=== PATIENT | female | born 1950 | race Caucasian/White ===

== ENCOUNTER → 2016-08-29 | Outpatient (CLI) | payer OTHER, MEDICARE ==
[2016-08-29 08:29] LABS: ALANINE AMINOTRANSFERASE 44 U/L (9-52); ALBUMIN 4.4 g/dL (3.5-5.0); ALKALINE PHOSPHATASE 57 U/L (38-126); ANION GAP 9 (5-19); ASPARTATE AMINO TRANSFERASE 30 U/L (14-36); BILIRUBIN,DIRECT 0.2 mg/dL (0.0-0.4); BILIRUBIN,TOTAL 0.6 mg/dL (0.2-1.3); BLOOD UREA NITROGEN 15 mg/dL (7-20); CARBON DIOXIDE 29 mmol/L (22-30); CHLORIDE 107 mmol/L (98-107); CHOLESTEROL 192.19 mg/dL (0-200); CREATININE RESULT 0.55 mg/dL (0.52-1.25); Direct HDL 63 mg/dL (>40); GLUCOSE 102 mg/dL (75-110); MAGNESIUM 2.1 mg/dL (1.6-2.3); SODIUM 145.2 mmol/L (137-145); TRIGLYCERIDES 58 mg/dL (<150)
[2016-08-29 08:41] LABS: DIRECT LDL 91 mg/dL (<100)
== END ==
LOC: OD 07:06
PROVIDERS: ATTEND Internal Medicine
DX: I10 Essential (primary) hypertension (principal); E78.5 Hyperlipidemia, unspecified; R00.2 Palpitations; R07.2 Precordial pain; R55 Syncope and collapse; Z79.899 Other long term (current) drug therapy
CPT/HCPCS: 36415; 80053; 80061; 83735

== ENCOUNTER 2019-10-02 14:02 | Observation (INO) | payer MEDICARE, OTHER ==
[2019-10-02 14:39] LABS: ABSOLUTE BASOPHILS # (AUTO) 0.1 10^3/uL (0.0-0.2); ABSOLUTE EOSINOPHILS # (AUTO) 0.1 10^3/uL (0.0-0.6); ABSOLUTE LYMPHOCYTES (AUTO) 2.2 10^3/uL (0.5-4.7); ABSOLUTE MONOCYTES (AUTO) 0.4 10^3/uL (0.1-1.4); ABSOLUTE NEUT (AUTO) 4.6 10^3/uL (1.7-8.2); BASOPHILS % (AUTO) 0.7 % (0-2); EOSINOPHILS % (AUTO) 1.6 % (0-6); HEMATOCRIT 38.3 % (36.0-47.0); HEMOGLOBIN 13.4 g/dL (12.0-15.5); LYMPHOCYTES % (AUTO) 29.6 % (13-45); MEAN CORPUSCULAR HEMOGLOBIN 30.6 pg (27.0-33.4); MEAN CORPUSCULAR HGB CONC 34.9 g/dL (32.0-36.0); MEAN CORPUSCULAR VOLUME 88 fl (80-97); MONOCYTES % (AUTO) 5.1 % (3-13); PLATELET COUNT 193 10^3/uL (150-450); RED BLOOD COUNT 4.37 10^6/uL (3.72-5.28); RED CELL DISTRIBUTION WIDTH 13.5 % (11.5-14.0); TOTAL CELLS COUNTED % (AUTO) 100 %; WHITE BLOOD COUNT 7.3 10^3/uL (4.0-10.5)
--- NOTE | 2019-10-02 15:00 | ER Document Report ---
ED General - General Stated Complaint: SYNCOPE, HEART PALPITATIONS Time Seen by Provider: 10/02/19 14:59 Information source: Patient Notes: Patient is a 69-year-old female presenting to the emergency department chief complaint of palpitations. Patient states that the palpitations and lightheadedness started about 1230 patient had a syncopal episode and once she was alert and oriented again she states that she felt weak at about 1300 patient had palpitations/fluttering sensation to her chest. She states normally it only lasts for a few seconds but this time it did not stop. Patient states she came to the emergency department for evaluation and treatment. Prior to the patient's arrival I was contacted by Dr. Leung the patient's diagnostic medical sonographer called and stated that he wanted the patient evaluated and subsequently admitted under his service. TRAVEL OUTSIDE OF THE [place] IN LAST 30 DAYS: No - HPI Onset: This afternoon Onset/Duration: Sudden Quality of pain: Achy Severity: Mild Pain Level: 1 Associated symptoms: Weakness. denies: Nonproductive cough, Productive cough, Diarrhea, Drooling, Nausea, Vomiting Exacerbated by: Denies Relieved by: Denies Similar symptoms previously: Yes Recently seen / treated by doctor: No - Related Data Allergies/Adverse Reactions: ibandronate sodium [From Boniva] Allergy (Intermediate, Verified 10/02/19 19:17) Fever Past Medical History - General Information source: Patient - Social History Smoking Status: Unknown if Ever Smoked Cigarette use (# per day): No Chew tobacco use (# tins/day): No Smoking Education Provided: No Frequency of alcohol use: None Drug Abuse: None Lives with: Family Family History: Reviewed & Not Pertinent Patient has suicidal ideation: No Patient has homicidal ideation: No - Past Medical History Cardiac Medical History: Reports: Other - SVT Denies: Hx Coronary Artery Disease, Hx Heart Attack, Hx Hypertension Pulmonary Medical History: Denies: Hx Asthma, Hx Bronchitis, Hx COPD, Hx Pneumonia Neurological Medical History: Denies: Hx Cerebrovascular Accident, Hx Seizures Musculoskeletal Medical History: Reports Hx Arthritis - spine per xray Past Surgical History: Denies: Hx Pacemaker - Immunizations Hx Diphtheria, Pertussis, Tetanus Vaccination: No Review of Systems - Review of Systems Notes: REVIEW OF SYSTEMS: CONSTITUTIONAL : Denies fever, chills, or sweats. Denies recent illness. EENT: Denies eye, ear, throat, or mouth pain or symptoms. Denies nasal or sinus congestion. CARDIOVASCULAR: Per HPI RESPIRATORY: Denies cough, cold, or chest congestion. Denies shortness of breath, difficulty breathing, or wheezing. GASTROINTESTINAL: Denies abdominal pain. Denies nausea, vomiting, or diarrhea. Denies constipation. GENITOURINARY: Denies difficulty urinating, painful urination, burning, frequency, or blood in urine. MUSCULOSKELETAL: Denies neck or back pain or joint pain or swelling. SKIN: Denies rash or skin lesions. HEMATOLOGIC : Denies easy bruising or bleeding. NEUROLOGICAL: Per HPI PSYCHIATRIC: Denies suicidal or homicidal ideations 10 Systems are negative unless otherwise specified above Physical Exam - Vital signs Vitals: Temp 97.8 F 10/02/19 14:06 - Notes Notes: PHYSICAL EXAMINATION: GENERAL: Well-appearing, well-nourished and in no acute distress. HEAD: Atraumatic, normocephalic. EYES: Pupils equal round and reactive to light, extraocular movements intact, sclera anicteric, conjunctiva are normal. ENT: nares patent, oropharynx clear without exudates. Moist mucous membranes. NECK: Normal range of motion, supple without lymphadenopathy, no appreciable JVD LUNGS: Lungs clear to auscultation bilaterally and equal. No wheezes rales or rhonchi. HEART: Regular rate and rhythm without murmurs ABDOMEN: Soft, nontender, normal bowel sounds. No guarding, no rebound. No masses appreciated. EXTREMITIES: Active full range of motion, no pitting or edema. No cyanosis. 2+ pulses x4 NEUROLOGICAL: At time of evaluation the patient is alert and oriented x3, Glascow coma scale of 15, cranial nerves II through XII are grossly intact, sensations intact, motor is intact, there are no signs of nystagmus, there is no pronator drift, there is no facial asymmetry, tongue protrusion is midline, reflexes are equal and bilateral, patient ambulates without ataxia, patient answers all questions appropriately follows commands appropriately. SKIN: Warm, Dry, and intact. Normal turgor, no rashes or lesions noted. Course - Re-evaluation Re-evalutation: 10/02/19 19:33 Patient has been reevaluated several times while in the emergency department the patient is remained stable without decompensation. I did discuss the negative EKG radiologic and laboratory results with the patient. Her diagnostic medical sonographer does want her admitted and she is agreeable with care plan. There is no signs of pneumonia pneumothorax congestive heart failure no signs laboratory [place] of electrolyte abnormalities. - Vital Signs Vital signs: Temp Pulse Resp BP Pulse Ox 97.8 F 71 16 174/88 H 88 L 10/02/19 14:06 10/02/19 15:19 10/02/19 19:01 10/02/19 19:01 10/02/19 19:00 - Laboratory Result Diagrams: 10/02/19 14:13 10/02/19 14:13 Laboratory results interpreted by me: 10/02/19 10/02/19 14:13 14:35 Creatinine 0.51 L Ur Leukocyte Esterase LARGE H - Diagnostic Test Radiology reviewed: Reports reviewed - EKG Interpretation by Me EKG shows normal: Sinus rhythm Rate: Normal Rhythm: NSR When compared to previous EKG there are: Previous EKG unavailable - EKG demonstrates sinus rhythm rate of 64 bpm with occasional PACs Discharge - Discharge Clinical Impression: SVT (supraventricular tachycardia) Condition: Stable Disposition: ADMITTED OBSERVATION Admitting Provider: [facility] Admitted: [facility]
[2019-10-02 15:14] LABS: ALBUMIN 4.5 g/dL (3.5-5.0); ALKALINE PHOSPHATASE 50 U/L (38-126); ANION GAP 8 (5-19); ASPARTATE AMINO TRANSFERASE 33 U/L (14-36); BILIRUBIN,TOTAL 0.4 mg/dL (0.2-1.3); BLOOD UREA NITROGEN 15 mg/dL (7-20); CALCIUM 9.4 mg/dL (8.4-10.2); CARBON DIOXIDE 27 mmol/L (22-30); CHLORIDE 102 mmol/L (98-107); CREATINE KINASE 122 U/L (30-135); GLUCOSE 86 mg/dL (75-110); POTASSIUM 3.9 mmol/L (3.6-5.0); TOTAL PROTEIN 7.2 g/dL (6.3-8.2)
[2019-10-02 15:15] LABS: APPEARANCE,URINE SLIGHTLY-CLOUDY; BILIRUBIN,URINE NEGATIVE (NEGATIVE); COLOR,URINE YELLOW; GLUCOSE, URINE NEGATIVE (NEGATIVE); KETONES,URINE NEGATIVE (NEGATIVE); LEUKOCYTE ESTERASE,URINE LARGE (NEGATIVE); NITRITE,URINE NEGATIVE (NEGATIVE); PROTEIN,URINE NEGATIVE (NEGATIVE); URINE SPECIFIC GRAVITY 1.003; UROBILINOGEN,URINE NEGATIVE mg/dL (<2.0)
[2019-10-02 15:33] LABS: CREATINE KINASE MB 1.99 ng/mL (<4.55)
[2019-10-02 15:35] LABS: TROPONIN I < 0.012 ng/mL
--- NOTE | 2019-10-02 16:00 | RADIOLOGY REPORT (SQ) ---
EXAM DESCRIPTION: CHEST SINGLE VIEW IMAGES COMPLETED DATE/TIME: 10/02/2019 3:50 pm REASON FOR STUDY: cp COMPARISON: None. EXAM PARAMETERS: NUMBER OF VIEWS: One view. TECHNIQUE: Single frontal radiographic view of the chest acquired. RADIATION DOSE: NA LIMITATIONS: None. FINDINGS: LUNGS AND PLEURA: 5 mm nodule left upper lung. No evidence of pulmonary edema or pneumoni a. MEDIASTINUM AND HILAR STRUCTURES: No masses. Contour normal. HEART AND VASCULAR STRUCTURES: Heart normal in size. Normal vasculature. BONES: No acute findings. HARDWARE: None in the chest. OTHER: No other significant finding. IMPRESSION: No acute findings. Small pulmonary nodule. TECHNICAL DOCUMENTATION: JOB ID: [id number] 2010 [employer]- All Rights Reserved Reading location - IP/workstation name: [email or web address]
[2019-10-02 16:08] LABS: FREE T4 (FREE THYROXINE) 1.29 ng/dL (0.78-2.19)
[2019-10-02 16:21] LABS: THYROID STIMULATING HORMONE 1.14 uIU/mL (0.47-4.68)
--- NOTE | 2019-10-02 21:37 | EKG REPORT ---
SEVERITY:- OTHERWISE NORMAL ECG - SINUS RHYTHM ATRIAL PREMATURE COMPLEX : Confirmed by: Jam Whittaker MD 02-Oct-2019 21:37:14
--- NOTE | 2019-10-02 22:00 | PDOC H&P ---
History of Present Illness Admission Date/PCP: 10/02/19 17:50 GIANFRANCO CUNNINGHAM MD Patient complains of: Syncope, rapid palpitations in a patient with history of supraventricular tachycardia, and chest pains with rapid heartbeat. History of Present Illness: GENE OHGUE is a 69 year old female Past Medical History Cardiac Medical History: Reports: Other - SVT. Had a recurrence since a long time since. Denies: Atrial Fibrillation, Congestive Heart Failure, Coronary Artery Disease, DVT, Myocardial Infarction, Hypertension, Peripheral Vascular Disease, Pulmonary Embolism Pulmonary Medical History: Denies: Asthma, Bronchitis, Chronic Obstructive Pulmonary Disease (COPD), Pneumonia, Respiratory Failure, Sleep Apnea EENT Medical History: Reports: None Neurological Medical History: Denies: Hemorrhagic CVA, Ischemic CVA, Migraine, Seizures Endocrine Medical History: Denies: Diabetes Mellitus Type 1, Diabetes Mellitus Type 2, Hyperthyroidism, Hypothyroidism, Obesity Renal/ Medical History: Denies: Chronic Kidney Disease Malignancy Medical History: Denies: None GI Medical History: Denies: Crohn's Disease, Gastroesophageal Reflux Disease, Hepatitis, Peptic Ulcer Disease Musculoskeltal Medical History: Reports: Arthritis - spine per xray Skin Medical History: Denies: None Psychiatric Medical History: Denies: None, Depression Traumatic Medical History: Denies: None Hematology: Reports: Anemia - yrs ago Infectious Medical History: Reports: None Past Surgical History Past Surgical History: Reports: Hysterectomy, Other - cystocele grade 3 surgery, and excision of anterior rectal prolapse. Denies: Pacemaker Social History Lives with: Family Smoking Status: Former Smoker Electronic Cigarette use?: No Number of Years Smokin Last Time Smoked: 1995 Frequency of Alcohol Use: None Hx Recreational Drug Use: No Drugs: None Hx Prescription Drug Abuse: No Family History Family History: Reviewed & Not Pertinent Parental Family History Reviewed: Yes Children Family History Reviewed: Yes Sibling(s) Family History Reviewed.: Yes Medication/Allergy Home Medications: Calcium Carbonate/Vitamin D3 [Caltrate 600 + D Soft Chew Tab] 1 each PO BID 10/02/19 Ergocalciferol (Vitamin D2) [Vitamin D2] 1,250 mcg PO TH@1000 10/02/19 Vit B Comp/C/Folic/Iron/Vit E [Vitamin B Complex Tablet] 1 tab PO DAILY 10/02/19 Allergies/Adverse Reactions: ibandronate sodium [From Blucarat] Allergy (Intermediate, Verified 10/02/19 19:17) Fever Physical Exam Vital Signs: Temp Pulse Resp BP Pulse Ox 97.9 F 67 14 163/72 H 100 10/02/19 20:27 10/02/19 20:27 10/02/19 20:27 10/02/19 20:27 10/02/19 20:27 Intake & Output 10/01/19 10/02/19 10/03/19 06:59 06:59 06:59 Weight 55.6 kg General appearance: PRESENT: no acute distress, well-developed, well-nourished Head exam: PRESENT: atraumatic, normocephalic Eye exam: PRESENT: conjunctiva pink, nystagmus - There is no nystagmus. PERRLA. No conjunctival pallor or scleral icterus. Mouth exam: PRESENT: moist, neck supple Throat exam: PRESENT: other - There is no redness of the oropharynx or exudates. Neck exam: PRESENT: other - Neck is supple. There is no JVD. Carotids are equal without any bruits. There is no thyromegaly. There is no lymphadenopathy. Trachea central. There is no accessory muscles of respiration use Respiratory exam: PRESENT: other - Lungs are clear to auscultation percussion without any rhonchi rales or wheezing. There is no chest wall tenderness on pa lpation. Pulses: PRESENT: normal carotid pulses, normal radial pulses, normal femoral pulses, normal dorsalis pedis pul, +2 pedal pulses bilateral Vascular exam: PRESENT: normal capillary refill, other - There is no cyanosis or clubbing. Breast: PRESENT: Other - Not examined. GI/Abdominal exam: PRESENT: other - Abdomen is soft. Nontender. There is no hepatosplenomegaly. Bowel sounds are well heard. There is no rebound guarding or rigidity. Rectal exam: PRESENT: deferred - There is no acute joint swelling or tenderness of the joints. Range of motion of the joints are normal. Neurological exam: PRESENT: other - The patient is conscious awake alert oriented x3 with no focal deficits. Psychiatric exam: PRESENT: other - The patient judgment and insight are intact and her affect is normal. Skin exam: PRESENT: other - Skin is warm. There is no petechia or ecchymosis. There is no skin lesions or skin rashes. Results Laboratory Results: 10/02/19 14:13 10/02/19 14:13 10/02/19 10/02/19 10/02/19 14:13 14:13 14:13 WBC 7.3 RBC 4.37 Hgb 13.4 Hct 38.3 MCV 88 MCH 30.6 MCHC 34.9 RDW 13.5 Plt Count 193 Seg Neutrophils % 63.0 Sodium 137.1 Potassium 3.9 Chloride 102 Carbon Dioxide 27 Anion Gap 8 BUN 15 Creatinine 0.51 L Est GFR ( Amer) > 60 Glucose 86 Calcium 9.4 Magnesium 2.2 Total Bilirubin 0.4 AST 33 Alkaline Phosphatase 50 Total Protein 7.2 Albumin 4.5 TSH Free T4 Urine Color Urine Appearance Urine pH Ur Specific [place] Urine Protein Urine Glucose (UA) Urine Ketones Urine Blood Urine Nitrite Ur Leukocyte Esterase Urine WBC (Auto) Urine RBC (Auto) 10/02/19 10/02/19 14:13 14:35 WBC RBC Hgb Hct MCV MCH MCHC RDW Plt Count Seg Neutrophils % Sodium Potassium Chloride Carbon Dioxide Anion Gap BUN Creatinine Est GFR ( Amer) Glucose Calcium Magnesium Total Bilirubin AST Alkaline Phosphatase Total Protein Albumin TSH 1.14 Free T4 1.29 Urine Color YELLOW Urine Appearance SLIGHTLY-CLOUDY Urine pH 7.0 Ur Specific [place] 1.003 Urine Protein NEGATIVE Urine Glucose (UA) NEGATIVE Urine Ketones NEGATIVE Urine Blood NEGATIVE Urine Nitrite NEGATIVE Ur Leukocyte Esterase LARGE H Urine WBC (Auto) 5 Urine RBC (Auto) 0 10/02/19 10/02/19 14:13 14:13 Creatine Kinase 122 CK-MB (CK-2) 1.99 Troponin I < 0.012 EKG Comments: Sinus Rhythm. PACs. Otherwise normal EKG. Impressions: Chest X-Ray 10/02/19 15:32 IMPRESSION: No acute findings. Small pulmonary nodule. Assessment & Plan - Diagnosis (1) Syncope and collapse Is this a current diagnosis for this admission?: Yes Plan: We will monitor patient on telemetry/[facility] bed. We will start the patient on small dose of beta-zhao. Will increase this as tolerated. Later would recommend that the patient have a 30-day event monitor, an echocardiogram and a stress test with Cardiolite. This can be done later as an outpatient. (2) Essential (primary) hypertension Is this a current diagnosis for this admission?: Yes Plan: The patient blood pressure is slightly elevated. She has a past history of hypertension but has not been on any medication. We will see if the beta- zhao started will control the patient's blood pressure otherwise we will add amlodipine. (3) Chest pain with palpitations Is this a current diagnosis for this admission?: Yes Plan: The patient has chest pains with rapid palpitations of the heart. She has no known history of coronary artery disease. Will check the patient's lipids. Would recommend as an outpatient get a IV Lexiscan Cardiolite stress test. The patient is agreeable for this. (4) Palpitations Is this a current diagnosis for this admission?: Yes Plan: Most likely secondary to SVT.. We will watch the patient for recurrence of symptoms and since the patient is being monitored will also see if that any tach arrhythmia correlates with the patient's symptoms of palpitation. (5) Generalized osteoarthritis Is this a current diagnosis for this admission?: No Plan: This is not acute. Hence will watch for any symptoms prior to starting the patient on anti-inflammatory agents. (6) SVT (supraventricular tachycardia) Is this a current diagnosis for this admission?: Yes Plan: The patient in the past has had runs of nonsustained supraventricular tachycardia with a complaints of palp mutations. Hence in view of the patient's palpitations and syncope SVT is the likely cause. As mentioned. The patient is on telemetry. We will start the patient on a small dose of beta-zhao and increase as tolerated. - Time Time Spent: 50 to 70 Minutes Medications reviewed and adjusted accordingly: Yes Anticipated discharge: Home Within: Other - Within 24 to 48 hours. - Inpatient Certification I certify that my determination is in accordance with my understanding of Medicare's requirements for reasonable and necessary INPATIENT services [42 CFR 412.3e].: Yes Medical Necessity: Need For Continuous Telemetry Monitoring, Risk of Diagnosis Which Will Require Inpatient Eval/Care/Monitoring
[2019-10-02] MEDS: METOPROLOL TARTRATE 25 MG TABLET PO SCH (22:11)
[2019-10-02 23:05] LABS: ALKALINE PHOSPHATASE 37 U/L (38-126); ASPARTATE AMINO TRANSFERASE 31 U/L (14-36); BILIRUBIN,TOTAL 0.4 mg/dL (0.2-1.3); TOTAL PROTEIN 6.5 g/dL (6.3-8.2)
[2019-10-03 06:50] LABS: TRIGLYCERIDES 79 mg/dL (<150)
[2019-10-03 07:01] LABS: DIRECT LDL 89 mg/dL (<100)
[2019-10-03] MEDS: METOPROLOL TARTRATE 25 MG TABLET PO SCH (09:09)
[2019-10-03] MEDS ORDERED: ENOXAPARIN SODIUM INJ 40 MG/0.4 ML DISP.SYRIN SUBCUT SCH (10:00)
--- NOTE | 2019-10-03 13:54 | PDOC DISCHARGE SUMMARY ---
Impression - Admit/DC Date/PCP Admission Date/Primary Care Provider: 10/02/19 17:50 GIANFRANCO CUNNINGHAM MD Discharge Date: 10/03/19 - Discharge Diagnosis (1) Syncope and collapse Is this a current diagnosis for this admission?: Yes (2) Essential (primary) hypertension Is this a current diagnosis for this admission?: Yes (3) Chest pain with palpitations Is this a current diagnosis for this admission?: Yes (4) Palpitations Is this a current diagnosis for this admission?: Yes (5) Generalized osteoarthritis Is this a current diagnosis for this admission?: No (6) SVT (supraventricular tachycardia) Is this a current diagnosis for this admission?: Yes - Additional Information Resuscitation Status: Full Code Discharge Diet: Cardiac Discharge Activity: Activity As Tolerated Referrals: EMMANUEL CUNNINGHAM DO [NO LOCAL MD] - 10/07/19 8:30 am Prescriptions: Metoprolol Tartrate [Lopressor 25 mg Tablet] 12.5 mg PO Q12 90 Days #90 tablet Home Medications: Calcium Carbonate/Vitamin D3 [Caltrate 600 + D Soft Chew Tab] 1 each PO BID 10/02/19 Ergocalciferol (Vitamin D2) [Vitamin D2] 1,250 mcg PO TH@1000 10/02/19 Vit B Comp/C/Folic/Iron/Vit E [Vitamin B Complex Tablet] 1 tab PO DAILY 10/02/19 Metoprolol Tartrate [Lopressor 25 mg Tablet] 12.5 mg PO Q12 90 Days #90 tablet 10/03/19 Physical Exam Vital Signs: Temp Pulse Resp BP Pulse Ox 97.6 F 57 L 14 121/50 L 100 10/03/19 08:44 10/03/19 08:44 10/03/19 08:44 10/03/19 08:44 10/03/19 08:44 Intake & Output 10/02/19 10/03/19 10/04/19 06:59 06:59 06:59 Intake Total 300 Balance 300 Weight 54.1 kg Results Laboratory Results: WBC 7.3 10^3/uL (4.0-10.5) 10/02/19 14:13 RBC 4.37 10^6/uL (3.72-5.28) 10/02/19 14:13 Hgb 13.4 g/dL (12.0-15.5) 10/02/19 14:13 Hct 38.3 % (36.0-47.0) 10/02/19 14:13 MCV 88 fl (80-97) 10/02/19 14:13 MCH 30.6 pg (27.0-33.4) 10/02/19 14:13 MCHC 34.9 g/dL (32.0-36.0) 10/02/19 14:13 RDW 13.5 % (11.5-14.0) 10/02/19 14:13 Plt Count 193 10^3/uL (150-450) 10/02/19 14:13 Lymph % (Auto) 29.6 % (13-45) 10/02/19 14:13 [place] % (Auto) 5.1 % (3-13) 10/02/19 14:13 Eos % (Auto) 1.6 % (0-6) 10/02/19 14:13 Baso % (Auto) 0.7 % (0-2) 10/02/19 14:13 Absolute Neuts (auto) 4.6 10^3/uL (1.7-8.2) 10/02/19 14:13 Absolute Lymphs (auto) 2.2 10^3/uL (0.5-4.7) 10/02/19 14:13 Absolute Monos (auto) 0.4 10^3/uL (0.1-1.4) 10/02/19 14:13 Absolute Eos (auto) 0.1 10^3/uL (0.0-0.6) 10/02/19 14:13 Absolute Basos (auto) 0.1 10^3/uL (0.0-0.2) 10/02/19 14:13 Seg Neutrophils % 63.0 % (42-78) 10/02/19 14:13 Sodium 137.1 mmol/L (137-145) 10/02/19 14:13 Potassium 3.9 mmol/L (3.6-5.0) 10/02/19 14:13 Chloride 102 mmol/L (98-107) 10/02/19 14:13 Carbon Dioxide 27 mmol/L (22-30) 10/02/19 14:13 Anion Gap 8 (5-19) 10/02/19 14:13 BUN 15 mg/dL (7-20) 10/02/19 14:13 Creatinine 0.51 mg/dL (0.52-1.25) L 10/02/19 14:13 Est GFR ( Amer) > 60 (>60) 10/02/19 14:13 Est GFR (MDRD) Non-Af > 60 (>60) 10/02/19 14:13 Glucose 86 mg/dL (75-110) 10/02/19 14:13 Calcium 9.4 mg/dL (8.4-10.2) 10/02/19 14:13 Magnesium 2.2 mg/dL (1.6-2.3) 10/02/19 14:13 Total Bilirubin 0.4 mg/dL (0.2-1.3) 10/02/19 22:42 Direct Bilirubin 0.0 mg/dL (0.0-0.4) 10/02/19 22:42 Neonat Total Bilirubin Not Reportable 10/02/19 22:42 Neonat Direct Bilirubin Not Reportable 10/02/19 22:42 Neonat Indirect Bili Not Reportable 10/02/19 22:42 AST 31 U/L (14-36) 10/02/19 22:42 ALT 26 U/L (<35) 10/02/19 22:42 Alkaline Phosphatase 37 U/L (38-126) L 10/02/19 22:42 Creatine Kinase 122 U/L (30-135) 10/02/19 14:13 CK-MB (CK-2) 1.99 ng/mL (<4.55) 10/02/19 14:13 Troponin I < 0.012 ng/mL 10/02/19 14:13 Total Protein 6.5 g/dL (6.3-8.2) 10/02/19 22:42 Albumin 4.0 g/dL (3.5-5.0) 10/02/19 22:42 Triglycerides 79 mg/dL (<150) 10/03/19 06:15 Cholesterol 166.30 mg/dL (0-200) 10/03/19 06:15 LDL Cholesterol Direct 89 mg/dL (<100) 10/03/19 06:15 VLDL Cholesterol 16.0 mg/dL (10-31) 10/03/19 06:15 HDL Cholesterol 63 mg/dL (>40) 10/03/19 06:15 TSH 1.14 uIU/mL (0.47-4.68) 10/02/19 14:13 Free T4 1.29 ng/dL (0.78-2.19) 10/02/19 14:13 Urine Color YELLOW 10/02/19 14:35 Urine Appearance SLIGHTLY-CLOUDY 10/02/19 14:35 Urine pH 7.0 (5.0-9.0) 10/02/19 14:35 Ur Specific [place] 1.003 10/02/19 14:35 Urine Protein NEGATIVE mg/dL (NEGATIVE) 10/02/19 14:35 Urine Glucose (UA) NEGATIVE mg/dL (NEGATIVE) 10/02/19 14:35 Urine Ketones NEGATIVE mg/dL (NEGATIVE) 10/02/19 14:35 Urine Blood NEGATIVE (NEGATIVE) 10/02/19 14:35 Urine Nitrite NEGATIVE (NEGATIVE) 10/02/19 14:35 Urine Bilirubin NEGATIVE (NEGATIVE) 10/02/19 14:35 Urine Urobilinogen NEGATIVE mg/dL (<2.0) 10/02/19 14:35 Ur Leukocyte Esterase LARGE (NEGATIVE) H 10/02/19 14:35 Urine WBC (Auto) 5 /HPF 10/02/19 14:35 Urine RBC (Auto) 0 /HPF 10/02/19 14:35 Squamous Epi Cells Auto 1 /HPF 10/02/19 14:35 Urine Mucus (Auto) RARE /LPF 10/02/19 14:35 Urine Ascorbic Acid NEGATIVE (NEGATIVE) 10/02/19 14:35 10/02/19 14:13 CK-MB (CK-2) 1.99 Troponin I < 0.012 Impressions: Chest X-Ray 10/02/19 15:32 IMPRESSION: No acute findings. Small pulmonary nodule. Plan Time Spent: Greater than 30 Minutes - Follow Up with as per appointment
[2019-10-03 14:15] VITALS: BP 140/70
== END 2019-10-03 14:34 | disposition home or self-care (01) ==
LOC: ER 14:02 → INTOOBSV 17:50 → EH 17:50 → 3S 19:57
PROVIDERS: ADMIT Specialist; ATTEND Specialist
DX: R55 Syncope and collapse (principal); I10 Essential (primary) hypertension; R07.9 Chest pain, unspecified; R00.2 Palpitations; M15.9 Polyosteoarthritis, unspecified; I47.1 Supraventricular tachycardia; R53.1 Weakness; Z87.891 Personal history of nicotine dependence
CPT/HCPCS: 93005; 99285; 36415 ×2; 84439; 82553; 82550; 83735; 84443; 85025; 87070; 80053; 81001; 84484; 80061; 71045; 93010; J1650; A9270 ×2